=== PATIENT | female | born 1995 | race American Indian/Alaskan Native ===

== ENCOUNTER 2020-11-02 13:01 | Outpatient (CLI) | payer OTHER ==
[2020-11-02] MEDS ORDERED: LACTATED RINGERS 1,000 ML IV SCH ×2 (13:45→15:15)
[2020-11-02] MEDS ORDERED: LACTATED RINGERS 1,000 ML IV ONE (15:01)
[2020-11-02] MEDS ORDERED: TERBUTALINE 1 MG/1 ML INJ SUB-Q SCH (16:00)
[2020-11-02 16:45] VITALS: BP 110/69
--- NOTE | 2020-11-02 16:51 | Ultrasound Report ---
ULTRASOUND OBSTETRIC LIMITED ULTRASOUND BIOPHYSICAL PROFILE INDICATION / CLINICAL INFORMATION: bpp/lane. COMPARISON: None available. FINDINGS: BREATHING MOVEMENT = 2 GROSS BODY MOVEMENT = 2 TONE = 2 QUALITATIVE AMNIOTIC FLUID VOLUME = 2 TOTAL BIOPHYSICAL SCORE = 8/8 HEART RATE (beats per minute): 146 AMNIOTIC FLUID INDEX (cm) = 6.0 (normal = 7-24 cm) PRESENTATION: Cephalic. ADDITIONAL FINDINGS: None. IMPRESSION: 1. Biophysical Score = 8/8 2. Mildly decreased amniotic fluid index. Signer Name: Ashish Perez MD Signed: 11/02/2020 4:47 PM Workstation Name: [id number]
== END 2020-11-02 17:51 | disposition home or self-care (01) ==
LOC: TRG 13:01 → APU 13:18 → TRG 17:51
PROVIDERS: ATTEND Obstetrics & Gynecology
DX: O42.92 Full-term premature rupture of membranes, unspecified as to length of time between rupture and onset of labor (principal); O36.8120 Decreased fetal movements, second trimester, not applicable or unspecified; Z3A.37 37 weeks gestation of pregnancy
CPT/HCPCS: 59025; 76815; 76819; 96360

== ENCOUNTER 2020-11-07 13:20 | Outpatient (CLI) | payer MEDICAID, OTHER ==
[2020-11-07] MEDS ORDERED: LACTATED RINGERS 2,000 ML ONE (16:27)
--- NOTE | 2020-11-07 16:52 | Ultrasound Report ---
ULTRASOUND OBSTETRIC LIMITED ULTRASOUND BIOPHYSICAL PROFILE INDICATION / CLINICAL INFORMATION: DECREASE MOVEMENT. COMPARISON: Limited OB ultrasound from 11/02/2020. FINDINGS: BREATHING MOVEMENT = 0 GROSS BODY MOVEMENT = 2 TONE = 2 QUALITATIVE AMNIOTIC FLUID VOLUME = 2 TOTAL BIOPHYSICAL SCORE = 6/8 AMNIOTIC FLUID INDEX (cm) = not reported PRESENTATION: Cephalic. HEART RATE (beats per minute): 131 ADDITIONAL FINDINGS: None. IMPRESSION: 1. Biophysical Score = 6/8 Signer Name: Kenyon Carreno MD Signed: 11/07/2020 4:48 PM Workstation Name: [id number]
[2020-11-07] MEDS ORDERED: TERBUTALINE 1 MG/1 ML INJ SUB-Q ONE (18:06)
[2020-11-07] MEDS ORDERED: LACTATED RINGERS 1,000 ML IV ONE ×2 (18:06)
[2020-11-07 19:00] VITALS: BP 116/66
== END 2020-11-07 19:10 | disposition home or self-care (01) ==
LOC: TRG 13:20 → APU 13:21 → TRG 19:10
PROVIDERS: ATTEND Obstetrics & Gynecology
DX: O36.8130 Decreased fetal movements, third trimester, not applicable or unspecified (principal); O47.1 False labor at or after 37 completed weeks of gestation; O99.513 Diseases of the respiratory system complicating pregnancy, third trimester; J45.909 Unspecified asthma, uncomplicated; Z3A.38 38 weeks gestation of pregnancy
CPT/HCPCS: 76815; 76819; J3105; J7120; 96372

== ENCOUNTER 2020-11-08 10:09 | Outpatient (CLI) | payer OTHER ==
[2020-11-08 11:26] VITALS: BP 107/66
--- NOTE | 2020-11-08 12:41 | Ultrasound Report ---
ULTRASOUND BIOPHYSICAL PROFILE ULTRASOUND OB LIMITED INDICATION: BPP - FOR REPEAT U/S TECHNIQUE: Transabdominal ultrasound imaging. COMPARISON: 11/07/2020 FINDINGS: breathing movement = 2 Gross body movement = 2 tone = 2 Qualitative amniotic fluid volume = 2 Total biophysical score = 8/8 Amniotic fluid index is 14.0 cm. Presentation is cephalic. heart rate is 138 beats per minute. IMPRESSION: biophysical profile equals 8/8. Signer Name: Dangelo Winn Jr, MD Signed: 11/08/2020 12:36 PM Workstation Name: [id number]
== END 2020-11-08 12:56 | disposition home or self-care (01) ==
LOC: TRG 10:09 → APU 10:13 → TRG 12:56
PROVIDERS: ATTEND Obstetrics & Gynecology
DX: Z34.93 Encounter for supervision of normal pregnancy, unspecified, third trimester (principal); Z3A.38 38 weeks gestation of pregnancy
CPT/HCPCS: 59025; 76815; 76819